=== PATIENT | male | born 1970 | race Caucasian/White ===

== ENCOUNTER 2020-04-22 20:45 | Emergency (ER) | payer OTHER ==
[~2020-04-22] VITALS: Ht 180.3 cm; Wt 124.8 kg
--- NOTE | 2020-04-22 21:43 | NUR ---
50 YEAR OLD MALE TO ED FOR LEFT UPPER MOUTH AND THROAT PAIN. HE STATES HE HAS A SORE IN HIS THROAT THAT PRODUCES STABBING PAIN THAT RADIATES TO HIS LEFT EAR. HE STATES THE PAIN IS WORSENED WITH TALKING, BREATHING, OR SWALLOWING. ED WORKUP INITIATED.
[2020-04-22] MEDS ORDERED: MORPHINE SULFATE 4 MG/ML, 1ML ONE (22:24)
[2020-04-22] MEDS ORDERED: MORPHINE SULFATE 4 MG/ML, 1ML IVPush PRN (22:30)
[2020-04-22 22:49] LABS: BASOPHILS % (AUTO) 0 % (0-1); EOSINOPHILS % (AUTO) 1 % (1-7); LYMPHOCYTES % (AUTO) 15 % (22-44); MEAN CORPUSCULAR HEMOGLOBIN 30.1 pg (27.5-34.5); MEAN CORPUSCULAR HGB CONC 33.3 g/dL (33.2-36.2); MEAN PLATELET VOLUME 8.2 fL (7.4-10.4); MONOCYTES % (AUTO) 7 % (2-9); NEUTROPHILS % (AUTO) 76 % (42-75); PLATELET COUNT 308 x10^3/uL (130-400); RED BLOOD COUNT 5.23 x10^6/uL (4.38-5.82)
[2020-04-22 22:53] LABS: ALBUMIN 3.8 g/dL (3.4-5.0); ANION GAP 4 mmol/L (5-15); CALCIUM 9.4 mg/dL (8.5-10.1); CHLORIDE 106 mmol/L (98-107)
[2020-04-22] MEDS ORDERED: OMNIPAQUE 350 MG/ML, 75ML BOTTLE ONE (23:17)
[2020-04-22 23:28] LABS: MD SCAN
[2020-04-22] MEDS ORDERED: DEXAMETHASONE 4 MG/ML, 1ML ONE (23:59)
[2020-04-22] MEDS ORDERED: CLINDAMYCIN PMX 600MG/50ML 50 ML ONE (23:59)
[2020-04-23] MEDS ORDERED: CLINDAMYCIN PMX 600MG/50ML 50 ML IV ONE
[2020-04-23] MEDS ORDERED: DEXAMETHASONE 4 MG/ML, 1ML IVPush ONE
[2020-04-23] MEDS ORDERED: LIDOCAINE-MPF 1%, 5ML ONE (00:18)
[2020-04-23] MEDS ORDERED: LIDOCAINE 1%, 2ML INFIL ONE (00:30)
[2020-04-23] MEDS ORDERED: LIDOCAINE 4% TOPICAL SOLUTION 50 ML TP ONE (00:30)
--- NOTE | 2020-04-23 00:41 | NUR ---
I&D SETUP W SUCTION. PATIENT CURRENTLY RECEIVING 4% LIDOCAINE VIA NEBULIZER.
[2020-04-23] MEDS ORDERED: FENTANYL PF 100 MCG/2ML ONE (01:09)
--- NOTE | 2020-04-23 01:12 | NUR ---
FENTANYL GIVEN AT 0112 DURING PROCEDURE FOR PAIN.
[2020-04-23] MEDS ORDERED: FENTANYL PF 100 MCG/2ML IVPush ONE (01:30)
[2020-04-23 02:30] VITALS: BP 141/59
== END 2020-04-23 03:18 | disposition home or self-care (01) ==
LOC: ED 04-23 00:53
DX: J36 Peritonsillar abscess (principal); J45.909 Unspecified asthma, uncomplicated; H92.02 Otalgia, left ear
CPT/HCPCS: 36415; 42700; 70487; 80048; 82040; 85025; 87880; 96365; 96375; 99285; J1100; J2270; J3010; J3490; Q9967